=== PATIENT | male | born 1970 | race Caucasian/White ===

== ENCOUNTER 2021-08-25 15:42 | Emergency (ER) | payer OTHER ==
[~2021-08-25] VITALS: Ht 175.3 cm; Wt 72.6 kg
[2021-08-25 15:44] VITALS: BP 94/52
[2021-08-25] MEDS ORDERED: IV NS 0.9% 1,000 ML BAG IV ONE (16:00)
--- NOTE | 2021-08-25 16:29 | NUR ---
PT REFUSING TREATMENT. AMA FORM SIGNED.
== END 2021-08-25 16:30 | disposition left against medical advice (07) ==
LOC: ER 15:56
DX: R55 Syncope and collapse (principal)